=== PATIENT | female | born 1995 | race Caucasian/White ===

== ENCOUNTER 2018-02-18 13:18 | Inpatient (IN) | payer OTHER ==
[~2018-02-18] VITALS: Ht 162.6 cm; Wt 71.7 kg
== END 2018-02-20 12:53 | disposition home or self-care (01) | DRG 343 ==
LOC: ER 13:18 → SURG 19:32 → SEC-K 19:32 → SURG 02-19 00:01
PROVIDERS: Surgery
PROC: BW21ZZZ Computerized Tomography (CT Scan) of Abdomen and Pelvis (ICD-10-PCS; 2018-02-18)
PROC: 0DTJ4ZZ Resection of Appendix, Percutaneous Endoscopic Approach (ICD-10-PCS; principal; 2018-02-18 21:00)
DX: K35.890 Other acute appendicitis without perforation or gangrene (principal)

== ENCOUNTER 2019-04-14 19:39 | Emergency (ER) | payer OTHER ==
[~2019-04-14] VITALS: Ht 165.1 cm; Wt 73.9 kg
== END 2019-04-14 23:32 | disposition home or self-care (01) ==
LOC: ER 19:39
DX: R50.9 Fever, unspecified (principal)

== ENCOUNTER 2019-10-23 11:58 | Emergency (ER) | payer OTHER ==
[~2019-10-23] VITALS: Ht 165.1 cm; Wt 73.9 kg
[2019-10-23] MEDS ORDERED: VALACYCLOVIR1000 MG PO (15:13)
[2019-10-23] MEDS ORDERED: FLUCONAZOLE150 MG PO (15:13)
[2019-10-23] MEDS ORDERED: TERCONAZOLE80 MG VAG (15:13)
[2019-10-23] MEDS ORDERED: INTESTINEX680 M1 PO (15:13)
== END 2019-10-23 15:57 | disposition home or self-care (01) ==
LOC: ER 11:58
DX: B37.3 Candidiasis of vulva and vagina (principal); B00.9 Herpesviral infection, unspecified

== ENCOUNTER 2019-10-23 15:52 | Outpatient (CLI) | payer OTHER ==
[~2019-10-23 15:52] MED LIST: FLUCONAZOLE150 MG PO; INTESTINEX680 M1 PO; TERCONAZOLE80 MG VAG; VALACYCLOVIR1000 MG PO
== END 2019-10-23 16:00 | disposition home or self-care (01) ==
LOC: LAB 15:52
PROVIDERS: ATTEND General Practice
DX: B37.3 Candidiasis of vulva and vagina (principal); A60.04 Herpesviral vulvovaginitis